=== PATIENT | male | born 1990 | race Caucasian/White ===

== ENCOUNTER 2017-08-11 16:51 | Emergency (ER) | payer OTHER | END 2017-08-11 18:58 | disposition home or self-care (01) | LOC: M ED 16:51 | DX: S09.90XA Unspecified injury of head, initial encounter (principal); W19.XXXA Unspecified fall, initial encounter; Y92.9 Unspecified place or not applicable; Y93.9 Activity, unspecified; Y99.9 Unspecified external cause status; Z72.0 Tobacco use | CPT/HCPCS: 70450 ==